=== PATIENT | female | born 1965 | race Caucasian/White ===

== ENCOUNTER 2022-04-13 07:09 | Day surgery (SDC) | payer OTHER ==
[~2022-04-13] VITALS: Ht 167.6 cm; Wt 84.4 kg
[2022-04-13] MEDS ORDERED: fentaNYL citrate 0.05 MG/ML VIAL ONE (08:32)
[2022-04-13] MEDS ORDERED: LIDOCAINE 2% 100 MG/5 ML UJET TP ONE (08:32)
[2022-04-13] MEDS ORDERED: fentaNYL citrate 0.05 MG/ML VIAL IVP ONE (09:15)
== END 2022-04-13 09:39 | disposition home or self-care (01) ==
LOC: MOR 07:09 → MMU 07:10 → MOR 09:39
PROVIDERS: ATTEND Internal Medicine Gastroenterology
DX: Z12.11 Encounter for screening for malignant neoplasm of colon (principal); K63.5 Polyp of colon; K57.30 Diverticulosis of large intestine without perforation or abscess without bleeding; F41.9 Anxiety disorder, unspecified; E78.5 Hyperlipidemia, unspecified; F32.A Depression, unspecified; Z80.8 Family history of malignant neoplasm of other organs or systems; Z20.822 Contact with and (suspected) exposure to COVID-19; Z79.899 Other long term (current) drug therapy
CPT/HCPCS: 45385; 87426; J3010